=== PATIENT | female | born 1960 | race Caucasian/White ===

== ENCOUNTER 2022-04-21 08:13 | Outpatient (CLI) | payer SELFPAY | END 2022-04-21 08:14 | disposition home or self-care (01) | LOC: NAV RAD 08:13 | PROVIDERS: ATTEND Family Medicine | DX: J45.41 Moderate persistent asthma with (acute) exacerbation (principal) | CPT/HCPCS: 71046 ==

== ENCOUNTER 2023-01-14 15:52 | Emergency (ER) | payer BC, SELFPAY ==
[2023-01-14] MEDS ORDERED: Ondansetron ODT 4 MG TAB ONE (17:00)
== END 2023-01-14 17:06 | disposition home or self-care (01) ==
LOC: NAV ERS 15:52
DX: B34.9 Viral infection, unspecified (principal); F17.210 Nicotine dependence, cigarettes, uncomplicated
CPT/HCPCS: 87804; 99283; Q0162